=== PATIENT | male | born 1990 | race Hispanic/Latino ===

== ENCOUNTER 2018-09-26 08:32 | Outpatient (CLI) | payer BC ==
--- NOTE | 2018-09-26 11:37 | RAD ---
UPPER GI SERIES WITH AIR CONTRAST: Date: 09-26-18 History: 27-year-old male with R10.12 dyspepsia. Technique: Upright administration of effervescent granules and thick liquid barium. Prone [place] straw administrati on of thin liquid barium. FINDINGS: The esophagus, stomach, and duodenal bulb have normal motility, distensibility, and mucosal pattern. No obvious large neoplasm or large ulcer is identified. There is no moderate sized or large hiatal he rnia. Gastroesophageal reflux is witnessed when the patient is first placed supine, but not later whe n the body is turned to elicit reflux. IMPRESSION: 1. Intermittent gastroesophageal reflux. 2. Otherwise negative. POS: [facility]
== END 2018-09-26 08:33 | disposition home or self-care (01) ==
LOC: RAD 08:32
PROVIDERS: ATTEND Internal Medicine
DX: R10.13 Epigastric pain (principal); K21.9 Gastro-esophageal reflux disease without esophagitis
CPT/HCPCS: 74247